=== PATIENT | female | born 1950 | race Caucasian/White ===

== ENCOUNTER 2024-08-14 23:18 | Inpatient (IN) | payer MEDICARE, OTHER, SELFPAY ==
[2024-08-14 17:50] VITALS: BP 195/96
[2024-08-14 17:57] LABS: Glucose - Point of Care 96 mg/dl (70-99)
[2024-08-14 18:26] LABS: Hematocrit 43.1 % (37.0-47.0); Hemoglobin 15.1 g/dL (12.0-16.0); Mean Corp Hgb Conc. 35.0 g/dL (33.0-37.0); Mean Corpuscular Volume 88.7 fL (81.0-99.0); Nucleated Red Blood Cells % 0 %; Platelet Count 236 10^3/uL (130-400); Red Cell Dist. Width 12.2 % (11.5-14.5)
[2024-08-14 18:44] LABS: ALT (SGPT) 32 U/L (0-35); AST (SGOT) 30 U/L (14-36); Albumin 5.0 g/dl (3.5-5.0); Alkaline Phosphatase 71 U/L (38-126); Blood Urea Nitrogen 14 mg/dl (7-17); Calcium 10.3 mg/dl (8.4-10.2); Carbon Dioxide 26 mmol/L (22-30); Chloride 105 mmol/L (98-107); Glucose 98 mg/dl (70-99); Potassium 3.9 mmol/L (3.5-5.1); Sodium 138 mmol/L (135-145); Total Protein 7.3 g/dl (6.3-8.2); eGFR > 60.00
[2024-08-14 21:37] VITALS: BP 175/89
--- NOTE | 2024-08-14 22:05 | ED.GENMED ---
History of Present Illness
General
Chief Complaint: Change in Mental Status
Source: patient
Exam Limitations: none
Time Seen by Provider: 08/14/24 20:45
Nursing documentation reviewed up to this point in time: agreed with
History of Present Illness
History of Present Illness:
Patient to ED with change in mental status. According to spouse, patient went for a swim at the gym, he was in the weight room. He saw her leave [facility] throught their workout and walk to their home. He states when he confronted her she had no
recall of being at the gym. She can not recall any activities of her day. Only short term memory is impacted. Denies fever/chills, recent illness. No history of trauma. No prior history of amnesia. Brought to ED for eval.
Past History
Past History
ED Past Medical History: HTN
ED Past Surgical History: Tonsilectomy (childhood)
Social History
Tobacco: Non-smoker
Alcohol: None
Drug: None
Personal:
Living: with family
Review of Systems
Review of Systems
Allergies reviewed?: Yes
All Other Systems: ROS reviewed and negative except as documented in HPI and ROS
Constitutional: Reports no symptoms
EENT: Reports no symptoms
Respiratory: Reports no symptoms
Cardiac: Reports no symptoms
ABD/GI: Reports no symptoms
: Reports no symptoms
Musculoskeletal: Reports no symptoms
Skin: Reports no symptoms
Neurological: Reports other (amnesia)
Psychiatric: Reports no symptoms
Phy Exam
General Physical Exam
General Presentation: moderate distress
General age: appears stated age
General Skin: warm and dry
General Habitus: normal
General Mental: alert
General Hydration: appears well hydrated
ENT Exam
ENT Exam: EOMI, TM's normal, pharynx normal, neck supple, normocephalic and swallowing well
Eye Exam
Eye Exam: PERRL, EOMI, conjunctiva normal and globe normal
Cardiovascular Exam
Cardiovascular Exam: regular rate/rhythm and no edema
Pulmonary Exam
Pulmonary Exam: lungs clear, no respiratory distress and chest non tender
Gastrointestinal Exam
Gastrointestinal Exam: normal bowel sounds and non tender
Neurological Exam
Neurological Exam: alert, oriented x3, CN II-XII intact, no motor deficits, no sensory deficits and speech normal
NIH Stroke Score
Level of Consciousness: 0 - Alert
LOC questions: 0-Answers both correctly
LOC Commands: 0-Performs both correctly
Best Gaze: 0-Normal
Visual Isaac: 0=Normal, no visual loss
Facial palsy: 0=Normal, symmetrical
Motor - Right Arm: 0=No drift 10 seconds
Motor - Left Arm: 0=No drift 10 seconds
Motor - Right Le-No drift 5 seconds
Motor - Left Le-No drift 5 seconds
Limb Ataxia: 0-Absent
Sensation: 0-Normal
Best Language: 0-No aphasia
Dysarthria: 0-Normal
Extinction and Inattention: 0-No abnormality
Total Score:: 0
Musculoskeletal Exam
Musculoskeletal Exam: full ROM, neuro vasc intact and other (no bruising or wounds noted to trunk, extremitie, head/scalp)
Skin Exam
Skin Exam: normal color, warm/dry and no rash
Psychiatric Exam
Psychiatric Exam: anxious (crying)
Course
Orders/Labs/Results
Orders:
Orders
08/14/24 17:58
CT Head W/o Iv Contrast Urgent
Comment:
Reason For Exam: confusion
08/14/24 18:03
CBC/With Diff [Complete Blood Count/With Diff] Urgent
Comprehensive Metabolic Panel Urgent
08/14/24 20:57
Urinalysis Reflex To Culture Urgent
Abnormal Lab Results
08/14/24
18:03
MCH 31.1 H pg
(27.0-31.0)
Calcium 10.3 H mg/dl
(8.4-10.2)
08/14/24 18:03
08/14/24 18:03
Vital Signs
Initial and Last Documented VS:
Initial Vital Signs
Temp Pulse Resp BP Pulse Ox
97.7 F 74 16 195/96 96
08/14/24 17:50 08/14/24 17:50 08/14/24 17:50 08/14/24 17:50 08/14/24 17:50
Last Documented Vital Signs
Temp Pulse Resp BP Pulse Ox
97.7 F 67 16 175/89 97
08/14/24 17:50 08/14/24 21:37 08/14/24 17:50 08/14/24 21:37 08/14/24 22:13
*Radiology
Radiology exam reviewed: radiology read reviewed
*Pulse Oximetry
SaO2: 97
Oxygen Mode of Delivery: Room air
Patient hypoxic: no
*Critical Care Note
Total Time (30-74mins, 75-104mins- exclusive of procedures): Not Applicable
Update Note
Update Note:
Patient to ED for mental status change. Has no recall of today's activities. Asking spouse same questions repeatedly. VSS, she remains afebrile. Labs reviewed, no concerning findings. CT of head neg for acute findings. Case discussed with
Gary. WIll admit to hospitalist for global amnesia.
ED Attending Note
-
Portions of this chart may have been created with voice recognition software.� Occasional wrong word or��sound alike� substitutions may have occurred due to the inherent limitations of voice recognition software.
Discharge Plan
Departure
Patient Disposition: Admit
Date of Disposition: 08/14/24
Time of Disposition: 22:16
Presentation/result/management discussed w/ accepting MD/DO: Hospitalist
Patient with high blood pressure during this ER visit?: No
Condition: Fair
Covid-19: Not Applicable
Discharge Problem:
Global amnesia
Referrals:
Tone Coats MD [Family Provider, Family Practice]
Interventions
Interventions:
*Risk Screen - Suicide Last Done: 08/14/24 17:50
*Neglect/Abuse Screening Last Done: 08/14/24 17:50
Discharge Date and Time
Print Language: JAPANESE
--- NOTE | 2024-08-14 22:23 | HPS.HSE ---
Family Physician
-
Family Physician: Tone Coats
Chief Complaint
-
change in mental status
History of Present Illness
Patient is a 74-year-old female with past medical history significant for hypertension, hyperlipidemia and hypothyroid who presented to [facility] ED for evaluation of change in mental status. Patient spouse at bedside who assisted in HPI. This evening
between [id number] patient and her spouse went to do normal exercise, he went into gym and she went to pool to swim. He reports seeing her leave and walk home, when he arrived home behind her and questioned her, she did not recall being at the gym
and was confused not recognizing her own home. She then began repeating multiple questions. Patients last current memory is yesterday. Denies any recent illness, fever or chills.
Medical History
Past Medical History
Past Medical History: Reports Other
Additional Past Medical History:
hypertension
hyperlipidemia
hypothyroid
Past Surgical History: Reports Other
Additional Past Surgical History:
tonsillectomy
hysterectomy
vaginal sling
Social History
Tobacco: Non-smoker
Alcohol: None
Personal:
Living: With Family
Family History
Family History: Other (Father: CVA, HTN)
Allergies / Home Medications
Allergies reflects when Allergies were last updated in [facility].
Home Medications with original date entered in [facility]
Allergy/Medication List:
Allergies
Allergy/AdvReac Type Severity Reaction Status Date / Time
Sulfa (Sulfonamide Allergy Mild Hives Verified 08/14/24 17:49
Antibiotics)
Home Medications
Calcium 500 1 dose PO DAILY 08/14/24
Fish Oil 1 dose PO DAILY 08/14/24
Glucosamine Chondroitin 1 dose PO DAILY 08/14/24
Metamucil 2 tsp PO HS 08/14/24
levothyroxine 50 mcg tablet (Synthroid) 50 mcg PO DAILY 08/14/24
losartan 50 mg tablet 50 mg PO DAILY 08/14/24
simvastatin 20 mg tablet 20 mg PO DAILY 08/14/24
Review of Systems
-
History Source: Patient
Neurological: Reports Other (amnesia, recent memory loss)
Physical Exam
Vital Signs
Vital Signs
Temp Pulse Resp BP Pulse Ox
97.7 F 70 16 175/89 97
08/14/24 17:50 08/14/24 22:15 08/14/24 17:50 08/14/24 21:37 08/14/24 22:15
Physical Exam
General: Well Developed, Well Nourished, No Apparent Distress and Conversant
HEENT: NormoCephalic, Moist mucous membranes, Atraumatic, Nose Appears Normal and Ears Appear Normal
Respiratory: Clear; No Non Labored Respirations
Cardiac: S1/S2 and Regular Rhythm; No Murmur, Rub or Gallop
Breast: Deferred by me
GI: Soft, Non Tender, Non Distended and Normal Bowel Sounds; No Organomegaly
Rectal: Deferred by Provider
Genito-urinary: Deferred by me
Musculoskeletal: No Clubbing, No Cyanosis and No Edema
Skin: Warm and IV/Catheter Site
Neuro: Awake, Alert, AO x 3 and Nonfocal/grossly intact
Psych: Anxious
Laboratory Results
-
08/14/24 18:03
08/14/24 18:03
Laboratory Results
Total Bilirubin 0.8 mg/dl (0.2-1.3) 08/14/24 18:03
AST 30 U/L (14-36) 08/14/24 18:03
ALT 32 U/L (0-35) 08/14/24 18:03
Alkaline Phosphatase 71 U/L (38-126) 08/14/24 18:03
Data Reviewed
-
CT Scan: Report Reviewed by me (Head: 1. No CT evidence for acute intracranial hemorrhage or transcortical infarct. 2. Mild diffuse cerebral and cerebellar volume loss. 3. Mild periventricular white matter leukoaraiosis.)
Lab Data: Labs Reviewed by me
Impression/Plan
-
IMPRESSION/PLAN:
#transient global amnesia 2/2 TIA vs. HTN encephalopathy
#hypertension urgency
labs unremarkable
UA: pending
Head CT: 1. No CT evidence for acute intracranial hemorrhage or transcortical infarct.
2. Mild diffuse cerebral and cerebellar volume loss.
3. Mild periventricular white matter leukoaraiosis.
- Admit to telemetry
- check TSH, B12, folate
- Neuro consult
- defer to Neuro for further imaging (note patient with severe claustrophobia and will have difficulty with MRI)
#hypertension
- continue losartan
- add hydralazine PRN SBP>165/DBP>110
#hypothyroid
- check TSH
- continue levothyroxine
#hyperlipidemia
- continue simvastatin
Code status: full code
DVT prophylaxis: SCDs
--- NOTE | 2024-08-14 22:36 | W.PN.UPDATE ---
Update Note
Progress Note Update
I could not get any information from the patient pw amnestic episode
Information gathered by chart review and speaking with the ER staff.
This note serves as an addendum to the H&P by per diem interpreter CONRAD Maria C Goldstein
HPI
74F Lt dominant , never smoke, HX HTN, Hypothyroid seen at ER
- Brought to ED by
- evaluation for change in mental status.
- According to spouse, patient went for a swim at the gym, he was in the weight room.
- He saw her leave shelter throught their workout and walk to their home.
- He states when he confronted her she had no recall of being at the gym.
- She can not recall any activities of her day.
- Only short term memory is impacted.
- Denies fever/chills, recent illness.
- No history of trauma. No prior history of amnesia.
Relevant VS: BP 195/96 -->175/90 HR 70
PE
Gen: anxious, tearful coz could not recall the events
HEENT: symmetric facial expression
Neck: supple
Lungs: CTA
Cor: RRR S1 S2
Abdomen: soft benign
INSURANCE ACCOUNT REPRESENTATIVE: grossly non focal , NIH Zero
MS: no edema
Psych: anxious
Relevant data
Unremarkable CBC and CMP
Pending UA
Covid and Fly A & B pending
HCT:
1. No CT evidence for acute intracranial hemorrhage or transcortical infarct.
2. Mild diffuse cerebral and cerebellar volume loss.
3. Mild periventricular white matter leukoaraiosis.
NO PRIOR hospitalist admission:
ASSESSMENT & PLAN
Pending Rx reconciliation
Transient Global amnesia - TIA vs HTN encephalatrophy
HTN urgency
Non focal exam
Severe claustrophobia with MRI
- NEG HCT
- TSH, B12, Folate
- Neuro consult - defer for further imaging
HTN Urgency
- add IV Hydralazine PRN if SBP > 165, DBP > 110
- cont Cozaar 50 mg daily
Hypothyroid
- cont LT4
DVT Px: SCD
Full code
IP TLM
[2024-08-14 22:49] LABS: Urine Character Clear (Clear)
[2024-08-14 22:56] LABS: Urine Red Blood Cell 60-70 /HPF (0-2)
[2024-08-14 22:57] LABS: Urine White Cell 0-2 /HPF (0-5)
[2024-08-14 23:02] LABS: COVID-19 Antigen Negative (Negative)
[2024-08-14 23:04] VITALS: BP 166/78
[2024-08-15] VITALS (11 sets, daily range): BP systolic 125–200; BP diastolic 76–111; PULSE 60; O2SAT 99; BMI 22.6
--- NOTE | 2024-08-15 02:21 | PTCARENOTE ---
Pt arrived onto floor @0221. Pt AAOx3 and able to walk into room without assistance. Pt with no complaints of SOB at this time. Pt oriented to room and call sharma; will continue to monitor
[2024-08-15] MEDS: TYLENOL 650 MG PO ×3 (02:38→20:39)
[2024-08-15] MEDS: SYNTHROID 50 MCG PO (05:44)
[2024-08-15] MEDS: LOW STRENGTH ASPIRIN 81 MG PO (07:46)
[2024-08-15] MEDS: COZAAR 50 MG PO (07:46)
[2024-08-15] MEDS: LIPITOR 10 MG PO (07:46)
[2024-08-15 08:06] LABS: Hematocrit 41.6 % (37.0-47.0); Hemoglobin 14.9 g/dL (12.0-16.0); Mean Corp Hgb Conc. 35.8 g/dL (33.0-37.0); Mean Corpuscular Volume 87.9 fL (81.0-99.0); Platelet Count 233 10^3/uL (130-400); Red Cell Dist. Width 12.2 % (11.5-14.5)
[2024-08-15 08:35] LABS: Blood Urea Nitrogen 12 mg/dl (7-17); Calcium 9.6 mg/dl (8.4-10.2); Carbon Dioxide 25 mmol/L (22-30); Chloride 109 mmol/L (98-107); Estimated Creatinine Clearance 67 ml/min; Glucose 98 mg/dl (70-99); Potassium 4.0 mmol/L (3.5-5.1); Sodium 139 mmol/L (135-145); eGFR > 60.00
[2024-08-15 08:46] LABS: HDL Cholesterol 63 mg/dl; LDL Cholesterol, Calculated 85 mg/dl; Very Low Density Lipoprotein 15 mg/dl (0-30)
--- NOTE | 2024-08-15 09:35 | CON.NEURO4 ---
Addendum entered and electronically signed by John Dobbs MD 08/15/24 11:29:
Studies reviewed.
I have personally examined the patient. I reviewed and agree with the AIR CONDITIONING UNIT ASSEMBLER's Note.
My addenda:
Awake, alert, interactive. No acute distress.
Speech intact.
Follows 2-step requests w/o difficulty. No tremor.
Extra-ocular movements grossly intact.
Facial movements full and symmetric. Hearing intact to normal conversational volume.
Normal UE movements bilaterally.
Neck: full ROM.
Chest: no dyspnea
Heart: no JVD
Ext: (-) Clubbing, (-) Cyanosis, (-) Edema
IMPRESSIONS/RECOMMENDATIONS:
Abrupt onset of change in mental status with moderate to severe hypertension at the time of presentation
Differential diagnosis includes transient global amnesia, the most likely diagnosis, as well as hypertensive encephalopathy, less likely based on symptomatology. Less likely is acute ischemic stroke
Continue supportive care
If the patient is able to tolerate MRI of brain, she typically experiences significant claustrophobia, then would discontinue aspirin if imaging does not demonstrate an acute ischemic stroke
If the patient is unable to tolerate MRI brain, would continue the patient on aspirin for 6 months or until the patient is had additional neuroimaging which may be either a repeated CT of the head at 6 months, or MRI of brain
Goal of normotension
Would consider neuropsychological evaluation and treatment if patient has recurrent event
D/W patient
All questions answered.
Will continue to follow patient.
Original Note:
Documented by User: Kirstin Ding NP 08/15/24 10:59
Consultation - Neurology 4
-
CONSULTING PHYSICIAN: John Dobbs MD
REFERRING PHYSICIAN: Hospitalists/MARION Peoples
DICTATED BY: MARION Wood
DATE/TIME OF REQUEST: 08/15/24
DATE/TIME OF CONSULTATION: 08/15/24
Reason for Consultation: Amnesia
History of Present Illness:
This is a 74-year-old left-handed female who has presented to the hospital on 08/14/24 with report of confusion. Patient reports that yesterday (08/14/24) she was in her usual state. They went to their gym around 1700 and she was swimming laps in the
pool while her was in the weight room; she then she cannot recall anything else. Her noted that he saw her get out of the pool and leave the facility. On arrival home, he found her confused. She did not recognize their house and kept
repeating the same question, prompting him to bring her to the ER for evaluation. Blood pressure on arrival was 195/96. CT head was obtained on arrival and is negative for any acute abnormalities. NIHSS was 0 on arrival so she was not a candidate
for TNK/IAT. She was started on aspirin in the ER. She reports that somewhere overnight around midnight she started remembering things again, and this morning she feels completely back to her baseline. She denies any headache, dizziness, vision
changes, speech/swallow difficulty, numbness, and weakness. She denies any history of TIA, stroke, or events like this in the past.
Patient reports that her blood pressure has been running high recently and her PCP increased her medications. She also notes a recent history of bowel incontinence, she is following with colorectal surgery and underwent a colonoscopy that was
unremarkable. She also notes significant stress in the early months of 2024 related to her son with spina bifida being ill, but this is nothing new to her. She reports a distant history of migraines with visual aura. She has not had one in years but
does not that she gets mild left frontal headaches about once a week. She takes Excedrin for these with relief in minutes. She denies any photo/phonophobia, nausea, or vomiting associated with these headaches.
Past Medical History: HTN, HLD, hypothyroidism
Surgical History: Hysterectomy, tonsillectomy, vaginal sling, right bunionectomy.
Family History: Reviewed and noncontributory.
Social History: Occasional alcohol. Denies tobacco and illicit drug use.
Allergies: Sulfa antibiotics.
Home Medications: See below.
Review of Symptoms:
Patient denies any fever, headache, chest pain, shortness of breath, GI or symptoms.
�Per the HPI.�All systems are reviewed negative except above.
Physical Exam:
The patient is afebrile, abdomen is nondistended, breathing is unlabored, skin is warm and dry, no edema.
NIH Stroke Scale:
I performed the NIH stroke scale on the patient on 08/15/24 at 0945. The patient scored 0 points on the NIH stroke scale assessment, which were assigned as follows: See below.
Neurologic Examination:
The patient is awake, alert and oriented x 3. She is able to follow commands and answer questions appropriately. There is no aphasia or dysarthria. On cranial nerve assessment, pupils are 3 mm bilateral, round and reactive to light and
accommodation. Visual isaac are full. Extraocular movements are intact. Facial sensations are intact and bilaterally symmetrical, there is no facial asymmetry. Hearing is intact bilaterally to normal conversation volume. Tongue palate and uvula are
midline. Sternocleidomastoid strengths are full bilaterally. Motor strengths are 5/5 bilateral upper and lower extremities on medical research [place] scale. There is no drift or involuntary movement noted. Deep tendon reflexes are 2+ bilateral
upper and lower extremities and Babinski is absent bilaterally. There was no extinction noted on double simultaneous stimulation. Coordination is intact by finger to nose bilaterally.
Lab Results: See below.
Neuro Imaging:
1. CT Head 08/14/24: No CT evidence for acute intracranial hemorrhage or transcortical infarct. Mild diffuse cerebral and cerebellar volume loss. Mild periventricular white matter leukoaraiosis.
2. Carotid ultrasound 08/15/24: No significant carotid bulb plaque demonstrated on either side, and no evidence of hemodynamically significant carotid stenosis as per modified Society of Radiologists in Ultrasound consensus criteria.
Differentials for the patient's presentation include:
1. Transient global amnesia likely produced symptomatology.
2. Hypertensive urgency possibly producing hypertensive encephalopathy.
3. HLD.
4. Low concern for TIA or stroke but possible.
Patient has the following risk factors for their symptoms: HTN, HLD, swimming
IV Tenecteplase/IAT candidacy: Not a candidate due to NIHSS 0.
Recommendations:
-Patient is reluctant to have an MRI brain due to claustrophobia. Lorazepam ordered on-call for MRI in case she decides she would like to pursue the MRI brain imaging ordered.
-Would continue aspirin 81mg daily until MRI brain imaging is completed.
-Goal normotension.
-Checking blood work for metabolic abnormalities.
-Provide patient with stroke education packet.
-Will follow pending results.
Discussed patient care with: Dr. Dobbs, the patient
Vital Signs and Labs
-
Vital Signs and Labs:
Vital Signs
Temp Pulse Resp BP Pulse Ox
98.4 F 65 16 155/88 96
08/15/24 07:55 08/15/24 07:55 08/15/24 07:55 08/15/24 07:55 08/15/24 07:55
Lab Results
08/15/24 07:47
08/15/24 07:47
Sodium 139 mmol/L (135-145) 08/15/24 07:47
Potassium 4.0 mmol/L (3.5-5.1) 08/15/24 07:47
BUN 12 mg/dl (7-17) 08/15/24 07:47
Glucose 98 mg/dl (70-99) 08/15/24 07:47
Calcium 9.6 mg/dl (8.4-10.2) 08/15/24 07:47
LDL Cholesterol, Calc 85 mg/dl 08/15/24 07:47
Medications
-
Active Medications
Generic Name Dose Route Start Last Admin
Trade Name Freq PRN Reason Stop Dose Admin
Acetaminophen 650 mg 08/15/24 00:37 08/15/24 02:38
Acetaminophen 325 Mg Tablet PO 09/12/24 00:36 650 mg
Q4HPRN PRN Administration
CAMPO, mild pain, or temp >100.4F
Aspirin 81 mg 08/15/24 08:00 08/15/24 07:46
Aspirin 81 Mg Chewable Tablet PO 09/12/24 07:59 81 mg
DAILY SOL Administration
Atorvastatin Calcium 10 mg 08/15/24 08:00 08/15/24 07:46
Atorvastatin (Lipitor) 10 Mg Tablet PO 09/12/24 07:59 10 mg
DAILY SOL Administration
Hydralazine HCl 5 mg 08/15/24 00:37
Hydralazine 20 Mg/Ml Vial IV 09/12/24 00:36
Q4HPRN PRN
SBP > 165, DBP > 110
Levothyroxine Sodium 50 mcg 08/15/24 06:00 08/15/24 05:44
Levothyroxine 50 Mcg Tablet PO 09/12/24 05:59 50 mcg
DAILY @ 0600 SOL Administration
Losartan Potassium 50 mg 08/15/24 08:00 08/15/24 07:46
Losartan 50 Mg Tablet PO 09/12/24 07:59 50 mg
DAILY SOL Administration
Sodium Chloride 0 flush 08/15/24 01:00
Sodium Chloride 0.9% (Flush) Syringe IV 09/12/24 00:59
PER PROTOCOL SOL
Home Medications
�Medication �Instructions �Recorded
Calcium 500 1 dose PO DAILY 08/14/24
Fish Oil 1 dose PO DAILY 08/14/24
Glucosamine Chondroitin 1 dose PO DAILY 08/14/24
Metamucil 2 tsp PO HS 08/14/24
levothyroxine 50 mcg tablet 50 mcg PO DAILY 08/14/24
(Synthroid)
losartan 50 mg tablet 50 mg PO DAILY 08/14/24
simvastatin 20 mg tablet 20 mg PO DAILY 08/14/24
NIH Stroke Score
Subsequent NIH Scale
Date of Subsequent NIH Scale: 08/15/24
Time of Subsequent NIH Scale: 09:45
NIH Stroke Score
Level of Consciousness: 0 - Alert
LOC Questions: 0-Answers both correctly
LOC Commands: 0-Performs both correctly
Best Horizontal Gaze: 0-Normal
Visual Isaac: 0=Normal, no visual loss
Facial Palsy: 0=Normal, symmetrical
Motor - Right Arm: 0=No drift 10 seconds
Motor - Left Arm: 0=No drift 10 seconds
Motor - Right Le-No drift 5 seconds
Motor - Left Le-No drift 5 seconds
Limb Ataxia: 0-Absent
Sensation: 0-Normal
Best Language: 0-No aphasia
Dysarthria: 0-Normal
Extinction and Inattention: 0-No abnormality
NIH Total Score:: 0
Modified [place] (mRS) Score
Modified [place] Scale (mRS): No symptoms
Score: 0
Alteplase Contraindication
Inclusion and Exclusion criteria reviewed: Yes

Documented by User: John Dobbs MD 08/15/24 11:17
NIH Stroke Score
NIH Stroke Score
NIH Total Score:: 0
Modified [place] (mRS) Score
Score: 0
[2024-08-15 10:05] LABS: Glycohemoglobin (HgbA1c) 5.1 % (4.0-5.6)
--- NOTE | 2024-08-15 11:00 | W.PN.HOSP.TC ---
Addendum entered and electronically signed by Damian Malcolm MD 08/15/24 11:38:
I called pharmacy and personally requested 1 mg IV Ativan for this patient so that she can successfully complete her MRI brain in the setting of her claustrophobia (with IV Ativan shortage). Neurology updated. RN updated.
Original Note:
Today's Communication/Plan
-
see plan
Assessment / Plan
Assessment / Plan
Gen: NAD, AAOx3.
Eyes: EOMI, PERRLA, no scleral icterus.
Neck: supple.
CV: RRR, +S1/S2, no m/r/g.
Resp: CTAB, no rales, wheezes, or rhonchi.
Abd: +BS, soft, NT, ND
Skin: No rashes.
Neuro: CN 2-12 intact, non-focal.
Psych: Normal mood and affect.
CT brain:
1. No CT evidence for acute intracranial hemorrhage or transcortical infarct.
2. Mild diffuse cerebral and cerebellar volume loss.
3. Mild periventricular white matter leukoaraiosis.
B/L carotid U/S: No significant carotid bulb plaque demonstrated on either side, and no evidence of hemodynamically significant carotid stenosis
TGA vs TIA/CVA vs hypertensive encephalopathy:
-with hypertensive urgency
-cont ARB
-Tele with SR (read by me)
-start Procardia XL 30mg daily
-neuro following. Discussed with Dr. Dobbs. OK to begin lowering BP. MRI brain ordered. Pt has claustrophobia. States that she required 'a double dose of Ativan' in the past to tolerate MRI. I explained that usually I give 0.5 mg IV Ativan but
will give 1 mg IV Ativan at this time.
Other problems:
Hypothyroidism: check TSH, cont Levoxyl
HLD: cont statin
Patient's updated at bedside.
FULL/SCDs
Anticipated Discharge: Within 24 hours
Subjective/Interval History
-
Date of Service: August 15, 2024
No new complaints.
Objective Data
-
Labs:
Laboratory Results
08/15/24
07:47
WBC 6.4
Hgb 14.9
Hct 41.6
Plt Count 233
Sodium 139
Potassium 4.0
Chloride 109 H
Carbon Dioxide 25
BUN 12
Creatinine 0.7
Glucose 98
Calcium 9.6
Vital Signs:
Vital Signs
Temp Pulse Resp BP Pulse Ox
98.4 F 65 16 155/88 96
08/15/24 07:55 08/15/24 07:55 08/15/24 07:55 08/15/24 07:55 08/15/24 07:55
[2024-08-15] MEDS: PROCARDIA XL (EXTENDED RELEASE) 30 MG PO (12:10)
--- NOTE | 2024-08-15 12:26 | CM ---
Patient seen at bedside on . patient stated that she lives with her in the independent apartment at [facility]. Patient PCP is Dr. Coats and she uses the [facility] [address] in [place]. Patient stated that she did not remember
anything from yesterday. Patient pending for additional testing. CM will continue to follow for discharge planning needs.
Plan;home with no needs at this time
[2024-08-15 14:57] LABS: Folate > 20.0 ng/ml (2.76-20); Vitamin B12 728 pg/ml (239-931)
[2024-08-15] MEDS: NSS (PRESERVATIVE FREE) 0.5 ML IV (15:51)
[2024-08-15] MEDS: ATIVAN 1 MG IV (15:52)
[2024-08-16] MEDS: TYLENOL 650 MG PO ×2 (00:47→05:55)
[2024-08-16 03:34] VITALS: BP 137/83
[2024-08-16] MEDS: SYNTHROID 50 MCG PO (05:53)
--- NOTE | 2024-08-16 07:29 | W.PN.NEURO.1 ---
Today's Communication / Plan
-
Supportive care
No indication for aspirin at this time
Goal of normotension
Neuro Assessment/Plan
Assessment
Abrupt onset of change in mental status with moderate to severe hypertension at the time of presentation
Due to transient global amnesia
Plan
Supportive care
No indication for aspirin at this time
Goal of normotension
Will follow as needed
Subjective/Objective
Subjective Data
Date of Service: August 16, 2024
Objective Data
Vital Signs
Temp Pulse Resp BP Pulse Ox
36.7 C 67 14 137/83 96
08/16/24 03:34 08/16/24 03:34 08/16/24 03:34 08/16/24 03:34 08/16/24 03:34
Lab Results
08/15/24 07:47
08/15/24 07:47
Sodium 139 mmol/L (135-145) 08/15/24 07:47
Potassium 4.0 mmol/L (3.5-5.1) 08/15/24 07:47
BUN 12 mg/dl (7-17) 08/15/24 07:47
Glucose 98 mg/dl (70-99) 08/15/24 07:47
Calcium 9.6 mg/dl (8.4-10.2) 08/15/24 07:47
LDL Cholesterol, Calc 85 mg/dl 08/15/24 07:47
Vitamin B12 728 pg/ml (239-931) 08/15/24 07:47
Patient Allergies
Sulfa (Sulfonamide Antibiotics) Allergy (Mild, Verified 08/14/24 17:49)
Hives
Data Reviewed
-
MRI Head: Report Reviewed
Carotid Ultrasound: Report Reviewed
Labs: Report Reviewed
Reviewed with: Nurse Practioner
Old Records: Summarized
Past History
Past History
ED Past Medical History: HTN and Other (Transient global amnesia August 2024)
ED Past Surgical History: Tonsilectomy (childhood)
Social History
Tobacco: Non-smoker
Alcohol: None
Drug: None
Personal:
Living: with family
Family History
Family History: Other (Reviewed and noncontributory)
Medications
-
Medications:
Generic Name Dose Route Start Last Admin
Trade Name Freq PRN Reason Stop Dose Admin
Acetaminophen 650 mg 08/15/24 00:37 08/16/24 05:55
Acetaminophen 325 Mg Tablet PO 09/12/24 00:36 650 mg
Q4HPRN PRN Administration
CAMPO, mild pain, or temp >100.4F
Aspirin 81 mg 08/15/24 08:00 08/15/24 07:46
Aspirin 81 Mg Chewable Tablet PO 09/12/24 07:59 81 mg
DAILY SOL Administration
Atorvastatin Calcium 10 mg 08/15/24 08:00 08/15/24 07:46
Atorvastatin (Lipitor) 10 Mg Tablet PO 09/12/24 07:59 10 mg
DAILY SOL Administration
Hydralazine HCl 5 mg 08/15/24 00:37
Hydralazine 20 Mg/Ml Vial IV 09/12/24 00:36
Q4HPRN PRN
SBP > 165, DBP > 110
Levothyroxine Sodium 50 mcg 08/15/24 06:00 08/16/24 05:53
Levothyroxine 50 Mcg Tablet PO 09/12/24 05:59 50 mcg
DAILY @ 0600 SOL Administration
Losartan Potassium 50 mg 08/15/24 08:00 08/15/24 07:46
Losartan 50 Mg Tablet PO 09/12/24 07:59 50 mg
DAILY SOL Administration
Nifedipine 30 mg 08/15/24 12:00 08/15/24 12:10
Nifedipine 30 Mg Extended Release Tablet PO 09/12/24 11:59 30 mg
DAILY SOL Administration
Sodium Chloride 0 flush 08/15/24 01:00
Sodium Chloride 0.9% (Flush) Syringe IV 09/12/24 00:59
PER PROTOCOL SOL
[2024-08-16 07:45] VITALS: BP 154/101
[2024-08-16] MEDS: LIPITOR 10 MG PO (08:10)
[2024-08-16] MEDS: LOW STRENGTH ASPIRIN 81 MG PO (08:10)
[2024-08-16] MEDS: COZAAR 50 MG PO (08:11)
[2024-08-16] MEDS: PROCARDIA XL (EXTENDED RELEASE) 30 MG PO ×2 (08:11→10:54)
--- NOTE | 2024-08-16 08:16 | W.PN.HOSP.TC ---
Today's Communication/Plan
-
d/c
Assessment / Plan
Assessment / Plan
Gen: NAD, AAOx3.
Eyes: EOMI, PERRLA, no scleral icterus.
Neck: supple.
CV: remains RRR, +S1/S2, no m/r/g.
Resp: remains CTAB, no rales, wheezes, or rhonchi.
Abd: remains +BS, soft, NT, ND
Skin: No rashes.
Neuro: CN 2-12 intact, non-focal.
Psych: Normal mood and affect.
CT brain:
1. No CT evidence for acute intracranial hemorrhage or transcortical infarct.
2. Mild diffuse cerebral and cerebellar volume loss.
3. Mild periventricular white matter leukoaraiosis.
MRI brain:
1. Mild diffuse cerebral and cerebellar volume loss.
2. Minimal white matter leukoaraiosis in the frontal lobes.
3. Mild paranasal sinus mucosal disease.
4. Severe right-sided facet joint arthrosis at C3/C4.
5. Small disc herniations at C3/C4 and C4/C5 causing mild spinal cord compression.
B/L carotid U/S: No significant carotid bulb plaque demonstrated on either side, and no evidence of hemodynamically significant carotid stenosis
TGA vs hypertensive encephalopathy:
-with hypertensive urgency
-cont ARB
-Tele with SR (read by me)
-increase Procardia XL to 60mg daily
-MRI brain without CVA
Other problems:
Hypothyroidism: TSH normal, cont Levoxyl
HLD: cont statin
Patient's updated at bedside.
FULL/SCDs
Medically cleared for d/c.
Total time spent on d/c = 31 min. This included today's physical exam, progress note, review of laboratory and diagnostic data, preparation of discharge documents and prescriptions, and discussions about the pt's hospital course and discharge plan
with the patient and other medical i d sales involved in the patient's care.
Anticipated Discharge: Today
Subjective/Interval History
-
Date of Service: August 16, 2024
No new complaints.
Objective Data
-
Vital Signs:
Vital Signs
Temp Pulse Resp BP Pulse Ox
98.1 F 64 14 154/101 96
08/16/24 03:34 08/16/24 08:11 08/16/24 03:34 08/16/24 08:11 08/16/24 03:34
[2024-08-16 10:57] VITALS: BP 130/75
[2024-08-16 11:37] VITALS: BP 122/66
--- NOTE | 2024-08-16 11:54 | CM ---
Met with patient to review discharge. Patient had no concerns. Signed IMM. It is on chart. Spouse to transport home.
Plan: Case management will continue to follow and assist with discharge planning. Home.
--- NOTE | 2024-08-16 14:28 | W.DCSUMMARY ---
Discharge Summary
Discharge Data
Date of Admission: 08/14/24
Date of Discharge: 08/16/24
-
Pending Results: No
Hospital Course
Primary diagnoses:
Transient global amnesia
Hypertensive urgency
Secondary diagnoses:
Hypothyroidism
Hyperlipidemia
Consultants:
Neurology
Imaging:
CT brain:
1. No CT evidence for acute intracranial hemorrhage or transcortical infarct.
2. Mild diffuse cerebral and cerebellar volume loss.
3. Mild periventricular white matter leukoaraiosis.
MRI brain:
1. Mild diffuse cerebral and cerebellar volume loss.
2. Minimal white matter leukoaraiosis in the frontal lobes.
3. Mild paranasal sinus mucosal disease.
4. Severe right-sided facet joint arthrosis at C3/C4.
5. Small disc herniations at C3/C4 and C4/C5 causing mild spinal cord compression.
B/L carotid U/S: No significant carotid bulb plaque demonstrated on either side, and no evidence of hemodynamically significant carotid stenosis
Hospital course: 74-year-old female presented with chief complaints of confusion and short-term memory loss as outlined in the H&P done on admission. All imaging above. The patient's memory returned. She had hypertensive urgency. She was on
losartan prior to admission. Procardia was added to her antihypertensive medication regiment and her blood pressures improved. She was seen in consultation by neurology. She was discharged in medically stable condition.
Discharge Plan
-
Patient Disposition: Home (Routine Discharge)
Discharge Diagnosis/Procedures: transient global amnesia
Condition: Good
Diet: Low Cholesterol and Low Sodium
Activity: As tolerated
Driving Restrictions: As prior to admission
Referrals:
Tone Coats MD [Family Provider, [facility]] - in less than 1 week
Prescriptions:
New
atorvastatin 10 mg Tablet
10 mg PO QHS Qty: 30 0RF
nifedipine [Procardia XL] 60 mg tablet extended release 24hr
60 mg PO DAILY Qty: 30 0RF
Continued
losartan 50 mg tablet
50 mg PO DAILY
Patient Comments:
08/14/2024, pt. unsure if this is a morning or evening med.
levothyroxine [Synthroid] 50 mcg tablet
50 mcg PO DAILY
Calcium 500
1 dose PO DAILY
Fish Oil
1 dose PO DAILY
Glucosamine Chondroitin
1 dose PO DAILY
Metamucil
2 tsp PO HS
Discontinued
simvastatin 20 mg tablet
20 mg PO DAILY
Patient Comments:
08/14/2024, pt. unsure if this is a morning or evening med.
Discharge Orders:
Discharge Patient (As Directed); Ordered 08/16/24
Ordered By: Damian Malcolm
Discharge Date and Time
Discharge Date/Time: 08/16/24 13:22
Print Language: IRANIAN
== END 2024-08-16 13:22 | disposition home or self-care (01) | DRG 72 ==
LOC: 4 WEST ACU 23:18
PROVIDERS: Emergency Medicine; Nurse Practitioner; Nurse Practitioner Family; ADMITTING PHYSICIAN Internal Medicine; ATTENDING PHYSICIAN Internal Medicine; CONSULT PHYSICIAN Psychiatry & Neurology Neurology; EMERGENCY PHYSICIAN Emergency Medicine; FAMILY PHYSICIAN Family Medicine
DX: G45.4 Transient global amnesia (principal); R41.82 Altered mental status, unspecified; I10 Essential (primary) hypertension; E03.9 Hypothyroidism, unspecified; I16.0 Hypertensive urgency; F40.240 Claustrophobia; E78.5 Hyperlipidemia, unspecified; Z82.49 Family history of ischemic heart disease and other diseases of the circulatory system; Z82.3 Family history of stroke; Z88.2 Allergy status to sulfonamides; Z79.890 Hormone replacement therapy; Z90.710 Acquired absence of both cervix and uterus; Z11.52 Encounter for screening for COVID-19
CPT/HCPCS: 70450; 70551; 80048; 80053; 80061; 81003; 81015; 82607; 82746; 82962; 83036; 84443; 85025; 85027; 85652; 87086; 87502; 87811; 93880; 97129; 97161; 97166; 99284